=== PATIENT | female | born 1955 | race Caucasian/White ===

== ENCOUNTER → 2022-08-09 09:41 | Outpatient (BNVA) | payer MEDICARE, OTHER, SELFPAY | PROVIDERS: PCP Internal Medicine; Visit Provider Psychiatry & Neurology Psychiatry | DX: F33.41 Major depressive disorder, recurrent, in partial remission (principal); F41.1 Generalized anxiety disorder | CPT/HCPCS: 90833; 99212 ==

== ENCOUNTER → 2022-10-29 14:39 | Outpatient (BNVA) | payer MEDICARE, OTHER, SELFPAY | PROVIDERS: PCP Internal Medicine; Visit Provider Psychiatry & Neurology Psychiatry | DX: F33.41 Major depressive disorder, recurrent, in partial remission (principal); F41.1 Generalized anxiety disorder | CPT/HCPCS: 90833; 99212 ==

== ENCOUNTER → 2023-03-01 11:33 | Outpatient (BNVA) | payer MEDICARE, OTHER, SELFPAY | PROVIDERS: PCP Internal Medicine; Visit Provider Psychiatry & Neurology Psychiatry | DX: F41.1 Generalized anxiety disorder (principal); F33.41 Major depressive disorder, recurrent, in partial remission | CPT/HCPCS: 90833; 99212 ==

== ENCOUNTER 2023-05-24 12:15 | Outpatient (AMB) | payer MEDICARE, OTHER, SELFPAY ==
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
== END 2023-05-24 12:44 | disposition home or self-care (01) ==
LOC: HO.HOP 12:15
PROVIDERS: PCP Internal Medicine; Visit Provider Psychiatry & Neurology Psychiatry
DX: F41.1 Generalized anxiety disorder (principal); F33.41 Major depressive disorder, recurrent, in partial remission
CPT/HCPCS: 90833; 99213

== ENCOUNTER → 2023-05-24 12:15 | Outpatient (BNVA) | payer MEDICARE, OTHER, SELFPAY | PROVIDERS: PCP Internal Medicine; Visit Provider Psychiatry & Neurology Psychiatry | DX: F41.1 Generalized anxiety disorder (principal); F33.41 Major depressive disorder, recurrent, in partial remission | CPT/HCPCS: 90833; 99212 ==

== ENCOUNTER 2023-08-06 13:58 | Outpatient (AMB) | payer MEDICARE, OTHER, SELFPAY ==
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
== END 2023-08-06 13:58 | disposition home or self-care (01) ==
LOC: HO.HOP 13:58
PROVIDERS: PCP Internal Medicine; Visit Provider Psychiatry & Neurology Psychiatry
DX: F41.1 Generalized anxiety disorder (principal); F33.41 Major depressive disorder, recurrent, in partial remission
CPT/HCPCS: 90833; 99213

== ENCOUNTER → 2023-08-06 13:58 | Outpatient (BNVA) | payer MEDICARE, OTHER, SELFPAY | PROVIDERS: PCP Internal Medicine; Visit Provider Psychiatry & Neurology Psychiatry | DX: F33.41 Major depressive disorder, recurrent, in partial remission (principal); F41.1 Generalized anxiety disorder | CPT/HCPCS: 90833; 99212 ==

== ENCOUNTER 2023-12-23 11:11 | Outpatient (AMB) | payer MEDICARE, OTHER, SELFPAY ==
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
== END 2023-12-23 12:09 | disposition home or self-care (01) ==
LOC: HO.HOP 11:12
PROVIDERS: PCP Internal Medicine; Visit Provider Psychiatry & Neurology Psychiatry
DX: F41.1 Generalized anxiety disorder (principal); F33.41 Major depressive disorder, recurrent, in partial remission
CPT/HCPCS: 90833; 99213

== ENCOUNTER → 2023-12-23 11:11 | Outpatient (BNVA) | payer MEDICARE, OTHER, SELFPAY | PROVIDERS: PCP Internal Medicine; Visit Provider Psychiatry & Neurology Psychiatry | DX: F41.1 Generalized anxiety disorder (principal); F33.41 Major depressive disorder, recurrent, in partial remission | CPT/HCPCS: 99212 ==

== ENCOUNTER 2024-04-21 11:52 | Outpatient (REF) | payer MEDICARE, OTHER, SELFPAY ==
[2024-04-21 13:18] LABS: Iron 50 mcg/dL (30-160); Percent Iron Saturation 16 % (15-50); Total Iron Binding Capacity 310 mcg/dL (228-428); Unsaturated Iron Binding 260 ug/dL
== END 2024-04-21 11:53 | disposition home or self-care (01) ==
LOC: HO.LAB 11:52
PROVIDERS: PCP Internal Medicine; Visit Provider Psychiatry & Neurology Psychiatry
DX: F41.1 Generalized anxiety disorder (principal); G25.81 Restless legs syndrome; Z79.899 Other long term (current) drug therapy; E11.9 Type 2 diabetes mellitus without complications
CPT/HCPCS: 36415; 83540; 99212

== ENCOUNTER 2024-04-21 11:52 | Outpatient (AMB) | payer MEDICARE, OTHER, SELFPAY ==
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
== END 2024-04-21 11:53 | disposition home or self-care (01) ==
LOC: HO.HOP 11:52
PROVIDERS: PCP Internal Medicine; Visit Provider Psychiatry & Neurology Psychiatry
DX: F41.1 Generalized anxiety disorder (principal); F33.41 Major depressive disorder, recurrent, in partial remission
CPT/HCPCS: 90833; 99213

== ENCOUNTER 2024-09-01 13:52 | Outpatient (AMB) | payer MEDICARE, OTHER, SELFPAY ==
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
== END 2024-09-01 15:42 | disposition home or self-care (01) ==
LOC: HO.HOP 13:52
PROVIDERS: PCP Internal Medicine; Visit Provider Psychiatry & Neurology Psychiatry
DX: F33.41 Major depressive disorder, recurrent, in partial remission (principal); F41.1 Generalized anxiety disorder; G25.81 Restless legs syndrome
CPT/HCPCS: 99214

== ENCOUNTER → 2024-09-01 13:52 | Outpatient (BNVA) | payer MEDICARE, OTHER, SELFPAY | PROVIDERS: PCP Internal Medicine; Visit Provider Psychiatry & Neurology Psychiatry | DX: F33.41 Major depressive disorder, recurrent, in partial remission (principal); F41.1 Generalized anxiety disorder; R41.89 Other symptoms and signs involving cognitive functions and awareness; G25.81 Restless legs syndrome | CPT/HCPCS: 99212 ==

== ENCOUNTER 2024-09-02 14:22 | Outpatient (REF) | payer MEDICARE, OTHER, SELFPAY ==
[2024-09-02 14:34] LABS: MANUAL DIFF FLAG NO
[2024-09-02 14:42] LABS: Basophils Absolute Auto 0.1 X10*3/uL (0.0-0.2); Eosinophils Absolute Auto 0.2 X10*3/uL (0.0-0.4); Eosinophils Percent Auto 2.7 % (0-4); Hematocrit 39.8 % (37.0-47.0); Hemoglobin 12.9 g/dl (12.0-16.0); Imm Gran Abs Auto 0.03 X10*3/uL (0.00-0.03); Imm Gran Pct Auto 0.4 % (0.0-0.4); Lymphocytes Percent Auto 29.2 % (20-40); Mean Corpuscular HGB Conc 32.4 g/dl (31.0-35.0); Mean Corpuscular Volume 83.3 fL (80.0-98.0); Mean Platelet Volume 9.4 fL (9.4-12.3); Monocytes Absolute Auto 0.7 X10*3/uL (0.1-1.2); Monocytes Percent Auto 10.8 % (2-11); Neutrophils Absolute Auto 3.8 x10*3/uL (2.0-8.3); Neutrophils Percent Auto 55.9 % (45-73); Platelet Count 433 X10*3/uL (160-400); Red Blood Count 4.78 X10*6/uL (4.20-5.50); Red Cell Distribution Width 14.9 % (11.0-16.0); White Blood Count 6.8 X10*3/uL (4.8-10.8)
[2024-09-02 15:18] LABS: Alanine Aminotransferase 28 U/L (0-31); Albumin Level 4.1 g/dL (3.5-5.0); Alkaline Phosphatase 71 U/L (39-117); Anion Gap 11 (12-20); Aspartate Amino Transferase 31 U/L (5-31); Bilirubin Total 0.2 mg/dL (0.0-1.0); Blood Urea Nitrogen 18 mg/dL (9-16); Calcium 10.6 mg/dL (8.4-10.2); Carbon Dioxide 26 mmol/L (22-29); Chloride 105 mmol/L (96-108); Estimated Glomerular Filt Rate > 60; Glucose Random 163 mg/dL (60-115); Potassium 4.3 mmol/L (3.3-5.1); Sodium 138 mmol/L (135-145); Total Protein 7.8 g/dL (6.5-8.0)
[2024-09-02 15:26] LABS: TSH reflex Free T4 0.34 uIU/mL (0.32-4.0)
[2024-09-02 15:42] LABS: Folate > 20.0 ng/mL (> or = 4.0); Vitamin B12 475 pg/mL (200-900)
== END 2024-09-02 14:23 | disposition home or self-care (01) ==
LOC: HO.LAB 14:22
PROVIDERS: PCP Internal Medicine; Visit Provider Psychiatry & Neurology Psychiatry
DX: F33.41 Major depressive disorder, recurrent, in partial remission (principal); F41.1 Generalized anxiety disorder; G25.81 Restless legs syndrome; R41.89 Other symptoms and signs involving cognitive functions and awareness
CPT/HCPCS: 36415; 80053; 82607; 82746; 84443; 85025

== ENCOUNTER 2024-12-18 12:01 | Outpatient (REF) | payer MEDICARE, OTHER, SELFPAY ==
[2024-12-18 13:47] LABS: Parathyroid Hormone Intact 29.9 pg/mL (8.7-77.1)
[2024-12-18 13:49] LABS: Estimated Average Glucose 140 mg/dL; Hemoglobin A1C 165.1805 umol/L; Hemoglobin A1c % 6.5 % (<6.0); Total Hemoglobin (HGBA1C) 3484.7533 umol/L
[2024-12-18 13:52] LABS: Alanine Aminotransferase 20 U/L (0-31); Albumin Level 4.1 g/dL (3.5-5.0); Alkaline Phosphatase 87 U/L (39-117); Anion Gap 12 (12-20); Aspartate Amino Transferase 28 U/L (5-31); Bilirubin Total 0.1 mg/dL (0.0-1.0); Blood Urea Nitrogen 17 mg/dL (9-16); Calcium 10.1 mg/dL (8.4-10.2); Carbon Dioxide 24 mmol/L (22-29); Chloride 108 mmol/L (96-108); Estimated Glomerular Filt Rate > 60; Glucose Random 127 mg/dL (60-115); Iron 36 mcg/dL (30-160); Percent Iron Saturation 11 % (15-50); Potassium 4.8 mmol/L (3.3-5.1); Sodium 139 mmol/L (135-145); Total Iron Binding Capacity 338 mcg/dL (228-428); Total Protein 8.6 g/dL (6.5-8.0); Unsaturated Iron Binding 302 ug/dL
[2024-12-18 14:17] LABS: Folate > 20.0 ng/mL (> or = 4.0); Vitamin B12 594 pg/mL (200-900)
--- OUTSIDE RECORDS SUMMARY | 2024-12-18 14:58 | XMS_ITS | Clinical Summary ---
Author Organization [facility] Address [address] [place] [address] Care Team Providers Care Armature Winder Name Role Phone Unavailable Primary Care Provider Unavailabl e Surgical History Surgery Date Site/Laterality Comments COLONOSCOPY 04/22 PROCEDURE: [place] COLONOSCOPY STOMA DX INCLUDING COLLJ SPEC SPX; COMMENT: iFdel; neg; R 04/27 OTHER SURGICAL HISTORY 02/24 PROCEDURE: PAP SMEAR (1 SLIDE); COMMENT: Tahira; neg (pp) MAMMOGRAM ELEONORA 08/27 PROCEDURE: MAMMOGRAM, SCREENING, BOTH BREASTS; COMMENT: neg (pp) Medical History Medical History Date Comments Pain in joint, lower leg 06/18/2006 DX:Pain in joint, lower leg Unspecified sinusitis (chronic) 06/18/2006 DX:Unspecified sinusitis (chronic) Other chronic nonalcoholic l iver disease 06/18/2006 DX:Other chronic nonalcoholi c liver disease Other chronic nonalcoholic l iver disease 06/18/2006 DX:Other chronic nonalcoholi c liver disease; COMMENT: Fidel Irritable bowel syndrome 06/18/2006 DX:Irri table bowel syndrome Carpal tunnel syndrome 06/18/2006 DX:Carpal tunnel syndrome Other and unspecified hyperlipidemia 02/11/2008 DX:Other and unspecified hyperlipidemia Abnormal maternal glucose to lerance, antepartum 06/18/2006 DX:Abnormal maternal glucose tolerance, antepartum Historical Medical DX 09/01/2007 DX:Diabete s Shoulder joint pain 12/05/2009 DX:Shoulder joint pain Family History Medical History Relation Name Comments Breast cancer Aunt 1 mat; DM II Colon cancer Aunt 2 pat; [place] Cataracts Father Diabetes Father pancreatits Glaucoma Father Breast cancer Maternal Grandmother Blindness Paternal Grandfather legally blind in Diabetes Paternal Grandfather Colon cancer Paternal Grandmother Macular degeneration Neg Hx Strabismus Neg Hx Relation Name Status Comments Aunt 1 Aunt 2 Father Maternal Grandmother Paternal Grandfather Paternal Grandmother Social History Tobacco Use Types Packs/Day Years Used Date Smoking Tobacco: Never Alcohol Use Standard Drinks/Week Comments Not Asked 0 (1 standard drink = 0.6 oz pur e alcohol) Comments Unknown Sex and Gender Information Value Date Recorded Sex Assigned at Not on file Legal Sex Female 10:50 AM EST Gender Identity Not on file Sexual Orientation Not on file Obstetrics History Plan of Treatment Health Maintenance Due Date Last Done Comments Breast Cancer Screening 1955 Diabetes: Annual GFR (Glomerular Filtration Rate) 1955 Diabetes: Annual Foot Exam 1965 Diabetes: Annual Retina Eye Exam 1965 DTaP,Tdap,and Td Vaccines (1 - Tdap) 1974 Hepatitis A Vaccines (1 of 2 - Risk 2-dose series) 1974 Pneumococcal Vaccine: 50+ Years (1 of 1 - PCV) 2005 Zoster Vaccines (1 of 2) 2005 Hepatitis B Vaccines (1 of 3 - Risk 3-dose series) 2015 RSV Immunization Patients 60 + Years Old (1 - Risk 60-74 years 1-dose series) 2015 Cholesterol Screening (Lipid Panel) 09/18/2022 Colorectal Cancer Screening: Colonoscopy 09/18/2022 Depression Screening 09/18/2022 Falls Risk Assessment 09/18/2022 Hepatitis C Screening 09/18/2022 Osteoporosis Screening (Bone Density Screening) 09/18/2022 Social Influencers of Health Screening 09/18/2022 Diabetes: Annual Urine Albumin-Creatinine Ratio (uACR) 10/06/2022 Diabetes: Blood Sugar Contro l Test (HGBA1C) 10/06/2022 COVID-19 Vaccine ( - 2023-2 5 season) 2024 Influenza Vaccine (#1) 2024 , 09/01/2007 HIB Vaccines Aged Out No longer eligi ble based on patient's age to complete this topic HPV Vaccines Aged Out No longer eligi ble based on patient's age to complete this topic IPV Vaccines Aged Out No longer eligi ble based on patient's age to complete this topic MMR Vaccines Aged Out No longer eligi ble based on patient's age to complete this topic Meningococcal ACWY Vaccine Aged Out N o longer eligible based on patient's age to complete this topic Meningococcal B Vacine Aged Out No lo nger eligible based on patient's age to complete this topic RSV Immunization Patients Under 20 months Aged Out No longer eligible b ased on patient's age to complete this topic Varicella Vaccines Aged Out No longer eligible based on patient's age to complete this topic
[2024-12-21 08:58] LABS: Calcium, Ionized 5.5 mg/dL (4.7-5.5)
== END 2024-12-18 12:02 | disposition home or self-care (01) ==
LOC: HO.LAB 12:01
PROVIDERS: PCP Internal Medicine; Visit Provider Psychiatry & Neurology Psychiatry
DX: F33.41 Major depressive disorder, recurrent, in partial remission (principal); F41.1 Generalized anxiety disorder; R41.89 Other symptoms and signs involving cognitive functions and awareness; G25.81 Restless legs syndrome; R73.9 Hyperglycemia, unspecified
CPT/HCPCS: 36415; 80053; 82330; 82607; 82746; 83036; 83540; 83970

== ENCOUNTER 2025-01-28 11:05 | Outpatient (AMB) | payer MEDICARE, OTHER, SELFPAY ==
--- OUTSIDE RECORDS SUMMARY | 2025-01-28 13:22 | XMS_ITS | Clinical Summary ---
Author Organization [facility] Address [address] [place] [address] Care Team Providers Care Decoration Checker Name Role Phone Unavailable Primary Care Provider Unavailabl e Surgical History Surgery Date Site/Laterality Comments COLONOSCOPY 04/22 PROCEDURE: [place] COLONOSCOPY STOMA DX INCLUDING COLLJ SPEC SPX; COMMENT: Fidel; neg; R 04/27 OTHER SURGICAL HISTORY 02/24 [...] DM II Colon cancer Aunt 2 pat; [place] Cataracts Father Diabetes Father pancreatits Glaucoma Father [...] - Risk 3-dose series) 2015 RSV Immunization Adult Patients (1 - Risk 60-74 years 1-dose series) 2015 Cholesterol Screening (Lipid Panel) 09/18/2022 Colorectal Cancer Screening: Colonoscopy 09/18/2022 Depression Screening 09/18/2022 Falls Risk Assessment 09/18/2022 Hepatitis C Screening 09/18/2022 Osteoporosis Screening (Bone Density Screening) 09/18/2022 Social Influencers of Health Screening 09/18/2022 Diabetes: Annual Urine Albumin-Creatinine Ratio (uACR) 10/06/2022 Diabetes: Blood Sugar Contro l Test (HGBA1C) 10/06/2022 COVID-19 Vaccine (2023-2 5 season) 2024 Influenza Vaccine (Season Ended) 2025 07/26/2009, 09/01/2007 HIB Vaccines Aged Out No longer [...] age to complete this topic Meningococcal B Vaccine Aged Out No l onger eligible based on patient's age to complete this topic RSV Immunization Patients Under 20 months Aged Out No longer eligible b ased on patient's age to complete this topic Varicella Vaccines Aged Out No longer eligible based on patient's age to complete this topic
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
== END 2025-01-28 12:00 | disposition home or self-care (01) ==
LOC: HO.HOP 11:05
PROVIDERS: PCP Internal Medicine; Visit Provider Psychiatry & Neurology Psychiatry
DX: F33.41 Major depressive disorder, recurrent, in partial remission (principal); F41.1 Generalized anxiety disorder
CPT/HCPCS: 99214

== ENCOUNTER → 2025-01-28 11:05 | Outpatient (BNVA) | payer MEDICARE, OTHER, SELFPAY | PROVIDERS: PCP Internal Medicine; Visit Provider Psychiatry & Neurology Psychiatry | DX: F41.1 Generalized anxiety disorder (principal); F33.41 Major depressive disorder, recurrent, in partial remission; Z71.89 Other specified counseling | CPT/HCPCS: 99212 ==

== ENCOUNTER 2025-03-25 12:48 | Outpatient (AMB) | payer MEDICARE, OTHER, SELFPAY ==
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
== END 2025-03-25 13:45 | disposition home or self-care (01) ==
LOC: HO.HOP 12:48
PROVIDERS: PCP Internal Medicine; Visit Provider Psychiatry & Neurology Psychiatry
DX: F41.1 Generalized anxiety disorder (principal); G25.81 Restless legs syndrome
CPT/HCPCS: 90833; 99213

== ENCOUNTER → 2025-03-25 12:48 | Outpatient (BNVA) | payer MEDICARE, OTHER, SELFPAY | PROVIDERS: PCP Internal Medicine; Visit Provider Psychiatry & Neurology Psychiatry | DX: F41.1 Generalized anxiety disorder (principal); G25.81 Restless legs syndrome | CPT/HCPCS: 99212 ==

== ENCOUNTER 2025-07-20 14:32 | Outpatient (AMB) | payer MEDICARE, OTHER, SELFPAY ==
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
--- OUTSIDE RECORDS SUMMARY | 2025-07-20 15:56 | XMS_ITS | Encounter Summary ---
Author Organization [facility] Address [address] [place] [id number] Phone Care Team Providers Care Supervisor Paper Testing Name Role Phone Shady Anaya DO Primary Care Provider [phone] Encounter Details Date Type Department Care Team (Latest Contact Info) Description 09/28/2022 Transcribe Orders [facility] [address] [address] Sri Bhakta NP [address] [place] [address] Fecal urgency (Primary Dx); Change in bowel habits; Lower abdominal pain Social History Tobacco Use Types Packs/Day Years Used Date Smoking Tobacco: Never Assessed Comments Unknown Sex and Gender Information Value Date Recorded Sex Assigned at Not on file Legal Sex Female 8:48 AM EDT Gender Identity Not on file Sexual Orientation Not on file documented as of this encounter Plan of Treatment Not on file documented as of this encounter Results * C-Reactive Protein (09/28/2022 12:01 PM EST) C REACTIVE PROTEIN <3.0 0.0 - 4.0 mg/L [facility] Blood 09/28/2022 12:0 1 PM EST 09/28/2022 12:05 PM EST us Sri Bhakta NP LAB BLOOD ORDERABLES Daiana l Result [facility] [address] [place] [address] * (ABNORMAL) Comprehensive metabolic panel (09/28/2022 12:01 PM EST) SODIUM 138 133 - 146 mmol/L [facility] POTASSIUM 4.6 3.3 - 5.1 mmol/L [facility] CHLORIDE 101 96 - 108 mmol/L [facility] CO2 25 21 - 35 mmol/L [facility] BUN 21(H) 6 - 19 mg/dL [facility] CREATININE 0.90 0.5 - 1.5 mg/dL [facility] GLUCOSE 128(H) 70 - 99 mg/dL [facility] ALBUMIN 4.3 3.9 - 4.8 g/dL [facility] TOTAL PROTEIN 7.6 6.5 - 8.0 g/dL [facility] CALCIUM 10.1 8.4 - 10.3 mg/dL [facility] ALKALINE PHOSPHATASE 85 39 - 117 U/L [facility] TOTAL BILIRUBIN 0.2 0.0 - 1.2 mg/dL [facility] AST 29 0 - 37 U/L [facility] ALT 13 0 - 40 U/L [facility] GLOBULIN 3.3 1 - 4.8 g/dL [facility] EGFR 70 >59 mL/min/1.7 3m2 [facility] Comment:Estimated glomerular filtration rate calculated using the CKD-EPI refit equation. ANION GAP 17 10 - 20 mmol/L [facility] Blood 09/28/2022 12:0 1 PM EST 09/28/2022 12:05 PM EST us Sri Bhakta NP LAB BLOOD ORDERABLES Daiana l Result [facility] [address] [place] [address] * (ABNORMAL) CBC (09/28/2022 12:01 PM EST) WBC 7.56 4.00 - 11.00 K/uL [facility] RBC 4.55 3.72 - 5.30 M/uL [facility] HGB 11.5 11.4 - 15.9 g/dL [facility] HCT 36.4 34.2 - 46.8 % [facility] PLT 501(H) 140 - 430 K/uL [facility] MCV 80.0 78.0 - 97.0 fL [facility] MCH 25.3 25.0 - 33.0 pg [facility] MCHC 31.6(L) 32.0 - 36.0 g/dL [facility] RDW 16.0 11.0 - 16.0 % [facility] MPV 10.3 8.4 - 12.8 fl [facility] Blood 09/28/2022 12:0 1 PM EST 09/28/2022 12:05 PM EST Sri Bhakta [employer] LAB BLOOD ORDERABLES Daiana hearn Result Performing Organization Address City/State/[facility] Co de Phone Number [facility] [address] [place] [address] documented in this encounter Visit Diagnoses Diagnosis Fecal urgency- Primary Change in bowel habits Other symptoms involving digestive system Lower abdominal pain Abdominal pain, other specified site documented in this encounter Care Teams Supervisor Paper Testing Relationship Specialty Start Date End Date Shady Anaya DO [address] [place] [address] PCP - General Internal Medicine 03/28/22 documented as of this encounter Additional Source Comments The information contained in this document represents components of the legal health record. It is not the complete legal health record.[facility]
--- OUTSIDE RECORDS SUMMARY | 2025-07-20 15:56 | XMS_ITS | Clinical Summary ---
[facility] Address [address] [place] [address] Care Team Providers Care Bottling Line Attendant Name Role Phone Unavailable Primary Care Provider Unavailabl e Surgical History Surgery Date Site/Laterality Comments COLONOSCOPY 04/22 PROCEDURE: [place] COLONOSCOPY STOMA DX INCLUDING COLLJ SPEC SPX; [...] DM II Colon cancer Aunt 2 pat; [place] Cataracts Father Diabetes Father pancreatits Glaucoma Father [...] Last Done Comments Breast Cancer Screening 1955 DTaP,Tdap,and Td Vaccines (1 - Tdap) 1974 Pneumococcal Vaccine: 50+ Years (1 of 1 - PCV) 2005 Zoster Vaccines (1 of 2) 2005 Depression Screening 10/21/2024 COVID-19 Vaccine (1 - 2023-2 5 season) 2025 Influenza Vaccine (#1) 2025 9, 09/01/2007 RSV Immunization Adult Patients (1 - 1-dose 75+ series) 2030 HIB Vaccines Aged Out No longer eligi ble based on patient's age to complete this topic HPV Vaccines Aged Out No longer eligi ble based on patient's age to complete this topic Hepatitis A Vaccines Aged Out No long er eligible based on patient's age to complete this topic Hepatitis B Vaccines Aged Out No long er eligible based on patient's age to complete [...]
--- OUTSIDE RECORDS SUMMARY | 2025-07-20 15:56 | XMS_ITS | Clinical Summary ---
Author Organization [facility] Address [address] [place] [id number] Phone Care Team Providers Care Director Process Engineering Name Role Phone Shady Anaya DO Primary Care Provider [phone] Social History Tobacco Use Types Packs/Day Years Used Date Smoking Tobacco: Never Assessed Education Answer Date Recorded Are you interested in more education? Not on esme e 02/16/2023 Are you concerned about learning? Not on file 02/16/2023 No 02/16/2023 No 02/16/2023 Digital Access Answer Date Recorded No 03/19/2023 No 03/19/2023 Reliable internet access at home? Not on file 03/19/2023 Device with a working camera? Not on file Comments Unknown Sex and Gender Information Value Date Recorded Sex Assigned at Not on file Legal Sex Female 8:48 AM EDT Gender Identity Not on file Sexual Orientation Not on file Plan of Treatment Not on file Medical Devices Not on file Insurance MEDICARE PART A & B [facility] [employer] MEDICARE SUPPLEMENT MEDICARE PART A & B [facility] [employer] MEDICARE SUPPLEMENT MEDICARE PART A & B Member Subscriber Plan / Payer ( fective 2021-) Name:Cici Mcginnis Member ID:[id number] Relation to Subscriber:Self Name:Cici Mcginnis Subscriber ID:[id number] Payer ID:[id number] Group ID:Not on file Type:Medicare Address: [employer] [address] [place] [phone] [facility] MEDICARE SUPPLEMENT MEDICARE PART A & B [facility] MEDICARE SUPPLEMENT MEDICARE PART A & B [employer] MEDICARE SUPPLEMENT MEDICARE PART A & B [employer] MEDICARE SUPPLEMENT MEDICARE PART A & B [employer] EXTENSION MEDICARE SUPPLEMENT MEDICARE PART A & B [employer] EXTENSION MEDICARE SUPPLEMENT MEDICARE PART A & B [facility] [employer] MEDICARE SUPPLEMENT Care Teams Director Process Engineering Relationship Specialty Start Date End Date Shady Anaya DO [address] [place] [id number] PCP - General Internal Medicine 03/28/22 Additional Source Comments The information contained in this document represents components of the legal health record. It is not the complete legal health record.[facility]
== END 2025-07-20 15:33 | disposition home or self-care (01) ==
LOC: HO.HOP 14:32
PROVIDERS: PCP Internal Medicine; Visit Provider Psychiatry & Neurology Psychiatry
DX: F41.1 Generalized anxiety disorder (principal); G25.81 Restless legs syndrome
CPT/HCPCS: 90833; 99213

== ENCOUNTER → 2025-07-20 14:32 | Outpatient (BNVA) | payer MEDICARE, OTHER, SELFPAY | PROVIDERS: PCP Internal Medicine; Visit Provider Psychiatry & Neurology Psychiatry | DX: F41.1 Generalized anxiety disorder (principal); G25.81 Restless legs syndrome | CPT/HCPCS: 99212 ==

== ENCOUNTER 2025-10-04 13:32 | Outpatient (AMB) | payer MEDICARE, OTHER, SELFPAY ==
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
--- OUTSIDE RECORDS SUMMARY | 2025-10-04 19:42 | XMS_ITS | Data Portability ---
Author Organization [place] [facility] Address [address] [place] [id number] Care Team Providers Care Curbstone Setter Name Role Phone MARGOT HODGES Primary Care Provider Assessment Encounter Date Assessment Date Assessment LastModified by Organization Details LastModified Time 09/01/2021 09/01/2021 Overview/History : 66 y/o F with hx of HLD, Anxiety, Depression, Hypogammaglobuli nemia, Restless leg syndrome, and peripheral neuropathy, new to and new to provider, is seeking further evaluation for a rash underneath her right breast that she noticed yesterday. The patient states that the rash is not itchy or painful and there was no numbness and tingling prior to the rash occurring. Patient denies any other associated symptoms. Patient denies any fevers, chills, nausea, vomiting, diarrhea, chest pain, or abdominal pain. Exam: AAOx3 overweight, female, non-toxic appearing, in no acute distress, ambulatory Head: NC/AT (+) moist mucous membranes Heart: RRR with no murmurs, rubs or gallops Lungs: CTABL with no ronchi, wheezes or rales present Skin: erythematous beefy red serpinginous rash under right breast fold with (+) satelitte lesions present DDx considered, but not limited to: Intertrigo versus Shingles versus Cellulitis Work up/Results: Patient is non-toxic appearing, in no acute distress, but is anxious. Patient is afebrile to 97.6. HR is 71. BP 124/84. RR is 20. O2sat is 98% on RA. Patient has an erythematous beefy red rash that is serpinginous appearing with satelitte lesions consistent with intertrigo. Underneath the breast is moist. Will initiate anti-fungal medication. No work-up or intervention deemed necessary at this time. Plan/Discussion: Advised patient that her symptoms are consistent with intertrigo that requires both antifungal therapy as well as keeping her skin dry as moisture can make the rash worse. Patient verbalized her understanding. Rash is not consistent with shingles as it is not painful and there were no prodromal symptoms of numbness or tingling prior to rash coming out. Rx: Clotrimazole elecronically prescribed to pharmacy.. Advised to keep underneath the breast folds dry. Advised to monitor for worsening spread of the rash, warmth, pain, numbness/tinglin g, fevers, chills, nausea or vomiting and if any of these are to occur then to call 911 and go to the ER or call back for re-evaluation. Patient verbalized her understanding of the diagnosis and need for follow up with PCP, as well as ER/DH return precautions. Proper Personal Protective Equipment (PPE), including gloves, eye protection, N95 mask, gown, and shoe covers were donned and doffed appropriately and all equipment cleaned using approved technique with germicidal disposable wipes prior to and after care of this patient according to [facility] infection prevention protocols. Not available 09/01/2021 20:16:29 03/15/2022 03/15/2022 Overview/History : 66 YO F new to provider but known to I have been in this home prior to see family Patient is c/o of 3 days of loose stools, can be watery at times She has not stooled yet today and she may be getting a bit better She has hx of IBS and has had bouts of this in the past She does vice frustration about having no GI follow up until April She reports she has not seen her GI specialist in some time and he has changed practices and this is likely why she must wait a bit She reports she called her primary and he did order some blood work to be done on her, she will be going to the lab to get this done She also requires supplies for a stool sample She reports she has been eating a BRAT diet and she has been hydrating She denies any fever/chills, abd pain, cp, weakness, lethargy, blood in stool, nausea, or vomiting. Exam: Vitals: VSS and afebrile Constitutional: 66 yo Well developed, well nourished, pleasant patient in no apparent distress. Nontoxic and comfortable. Eyes: No swelling, no discharge, sclera / conjunctiva clear ENT: no nasal discharge, no erythema/ exudate noted in oropharynx, moist mucous membranes CV: RRR, no rubs/ murmurs/ gallops heard, 2+ radial pulses bilaterally, no edema and no calf tenderness, 2+ DP/ PT pulses bilaterally Pulm: breath sounds clear and equal bilaterally, no wheeze/ rhonchi or rales on auscultation. Speaks in full sentences, no increased work of breathing. GI: Soft, non-tender to palpation. No masses, normal bowel sounds. MS: Self ambulatory patient, moves all limbs without deficit, no evidence of trauma Neuro: No focal deficits, A&O x4, gait is not ataxic Skin: No rash Psych: Calm, cooperative, non-manic. Pleasant. Vital Signs: Stable and afebrile DDx considered, but not limited to: C diff - considered d/t some watery stools and she does report that she was recently tx for UTI. We will check for C diff d.t these hx components however I doubt this as no stool today, no mucous, no fever, benign abdomen Viral Gastro - ML cause of sx's is some sort of viral diarrhea illness. There is no mucous, fever, abdomen is benign, and VSS. No diarrhea today and no recent high risk foods ie sushi or salads is why i believe viral gastro is ML Acute abdomen - abd is soft, nontender and she is w/o pain. No jaundice, no N/V and diarrhea seems to be turning corner. Do not suspect any acute process is what is causing her diarrhea at this time Dehydration: VSS, she is drinking plenty, MMM. She is not dehydrated at this time Work up/Results: C diff spec - awaiting collection anad results Plan/Discussion: Viral Gastroenteritis: -Believe this to be ML cause of sx's please see above -VSS and afebrile -No dehydrated -Hx of IBS and she has had issues w/ diarrhea in past -Usually relieved w/ loperamide but did not work last couple of days as well as she is used to -She did take Pepto Bismol last night and was able to get full night sleep, no diarrhea yet today -She can cont pepto since that seems to be working better for her at this time. She does not take skilled nursing ASA so low risk for salicylate poisoning. Educated about this and safe doses of pepto. Discussed always taking medicine according to original packaging. -She is to f/u at the lab for tests PCP would like to order so they may get results and f/u w/ them appropriately -She is to f/u w/ GI as sched and start calling them to see if she can sched for sooner potentially -She will collect stool and bring in to lab once she can get sample. Educated that she will need to collect stool, refridgerate it and bring in w/in 24 hrs -She is to f/u if sxs cont -F/u emergently w/ any abd pain, blood in stool, inability to intake PO, weakness, lethargy Of note we will check COVID 19PCR to fully r/o Pt is on agreement and verbalizes understanding with the above plans at this time. Pt has no other questions or concerns at this time. All questiosn are answered to the best of my ability. Pt thanks us for our visit today. In order to obtain further information and compare any laboratory results/values, I have accessed patient records on the [facility] and old pt records. This information was pertinent in my medical decision making today. Time On Scene with Patient: 01:28:35 Addendum: Did go back and collect stool for patient. We will bring to lab. Not watery, very unlikely C diff. States she hopes she is turning the corner as she ambulates easily around her home in [facility]. Still appears well. [email or web address] Not available 03/15/2022 11:53:58 Plan of Treatment Reminders Order Date Submit Date Provider Last Modified By Organization Details Last Modified Time Details Appointments None recorded. Lab unlisted lab - covid-19 (novel coronavirus ) PCR 2021 022 AMANDO [facility] (Centralized Electronic Ordering - All Locations), Patient Can Go To The Location Of Their Choice, [id number] 14:28:30 C diff toxin A+B, qual IA, stool - Collected by [employer]. 2021 022 [id number] [facility] (Centralized Electronic Ordering - All Locations), Patient Can Go To The Location Of Their Choice, [id number] 18:16:33 Referral None recorded. Procedures None recorded. Surgeries None recorded. Imaging None recorded. Medication Orders clotrimazol e 1 % topical cream [address] [facility] #[id number], [address] [place], [address], 19:55:19 Patient TargetsNo targets recorded. Patient Instructions Encounter Date Encounter Id Patient Instructions Last Modified By Organization Details Last Modified Time 09/01/2021 [id number] Thank you for yo ur visit with [facility] today. We cannot always find the exact cause of your symptoms during your initial visit. Please follow up with your primary care provider or specialist within 24-48 hours to be rechecked or seek medical attention if your symptoms do not go away or get worse. If you develop any new or worsening symptoms and need after hours care, please go to nearest ER and/or call 911. If you have additional concerns or develop a change in your condition between 8am-10pm, please call [facility] at [phone] to help navigate your care. Not available 09/01/2021 20:16:36 Reason for Referral None Reported. Results Created Date Observation Date Name Description Value Unit Range Abnormal Flag Note LastModifiedBy Organization Detail LastModifiedTime 03/15/20 22 03/16/2022 C. DIFFI CILE TOXIN C. difficile toxin (ngcdf 7) normal Negat bo. C.Dif ficil e bacte rial antig en and toxin not detec vida. A negat bo test resul t does not rule out the possi bilit y of C.Dif ficil e assoc iated disea se. If clini vipul suspi cion is high, consi melva resub gisel on after 7 days. Not Available [facility] (Centralized Electronic Ordering - All Locations) Patient Can Go To The Location Of Their Choice, [id number] 03/16/2022 08:53:17 03/15/20 22 03/16/2022 COVID -19 (NOVE L CORON AVIRU S) PCR covid-19 PCR result (neg) NEGAT BO 2019- novel Coron aviru s (2019 -nCoV ) not detec vida by real- time RT-PC R. Note: If clini vipul suspi cion for COVID -19 is high, giovany nue to maint ain preca ution s and consi melva repea t testi ng. Resul t repor vida to the [facility]. To preve nt error s in diagn osis, test resul ts shoul d be inter prete d in the krystal xt of clini vipul findi ngs and other labor atory data. Rare polym orphi sms exist that could lead to false -nega tive or false -posi tive resul ts. If resul ts obtai ana do not match the clini vipul findi ngs, addit ional testi ng shoul d be consi dered . This test has been autho rized by the FDA under an Emerg ency Use Autho rizat ion (EUA) for use by autho rized labor atori es. Testi ng perfo rmed by real time PCR utili [employer] SARS- CoV-2 test. Not Available [facility] (Centralized Electronic Ordering - All Locations) Patient Can Go To The Location Of Their Choice, [id number] 03/16/2022 14:28:30 03/15/2003/16/2022 COVID -19 (NOVE L CORON AVIRU S) PCR covid-19 PCR specimen source NASAL Not Available [facility] (Centralized Electronic Ordering - All Locations) Patient Can Go To The Location Of Their Choice, [id number] 03/16/2022 14:28:30 Result Notes None recorded. Procedures Surgical History Date Name Laterality Status Provider Name and Address Organization Details Recorded Time replacement of bilateral hip joints completed RUPERT MEJIA [address] [place], [address], [place] [facility] 09/01/2021 19:48:28 Carpal tunnel surgery completed RUPERT MEJIA [address], [place], [address], [place] [facility] 09/01/2021 19:48:35 Imaging Results None recorded. Procedure Notes None recorded. Medical Equipment None Reported. Allergies No known drug allergies Medications Name Sig Start Date Stop Date Status Note LastModified by Organization Details LastModified Time celecoxib 200 mg capsule TAKE 1 CAPSULE BY MOUTH EVERY DAY MEDICATIO N TO BE STARTED AFTER SURGERY active Not Available Not Available No t Available FreeStyle Lancets 28 gauge 09/01 completed Not Available Not Available Not Available venlafaxine ER 150 mg capsule,ext ended release 24 hr TAKE 1 CAPSULE BY MOUTH EVERY DAY active Not Available Not Available No t Available simvastatin 80 mg tablet TAKE ONE TABLET BY MOUTH AT BEDTIME active Not Available Not Available No t Available tramadol 50 mg tablet active Not Available Not Available No t Available amoxicillin 500 mg tablet TAKE 4 TABS BY MOUTH 1 HOUR PRIOR TO DENTIST APPT FOR PROPHYLAX IS S/P TOTAL JOINT REPLACEME NT active Not Available Not Available No t Available aspirin 325 mg tablet,dianna yed release TAKE ONE TABLET TWICE A DAY FOR 30 DAYS. MEDICATIO N TO BE STARTED AFTER SURGERY. active Not Available Not Available No t Available ropinirole 0.25 mg tablet TAKE 1 TABLET BY MOUTH EVERYDAY AT BEDTIME active Not Available Not Available No t Available pantoprazol e 40 mg tablet,dianna yed release TAKE 1 TABLET BY MOUTH EVERY DAY FOR AFTER SURGERY active Not Available Not Available No t Available ferrous sulfate 325 mg (65 mg iron) tablet TAKE 1 TABLET BY MOUTH EVERY DAY FOR 30 DAYS active Not Available Not Available No t Available metformin 1,000 mg tablet TAKE 1 TABLET BY MOUTH TWICE A DAY active Not Available Not Available No t Available buspirone 10 mg tablet 09/01 completed Not Available Not Available Not Available docusate sodium 100 mg capsule TAKE 1 CAPSULE BY MOUTH TWICE A DAY . MEDICATIO N TO BE STARTED AFTER SURGERY active Not Available Not Available No t Available gabapentin 300 mg capsule TAKE 1 CAPSULE BY MOUTH EVERY DAY AT NIGHT active Not Available Not Available No t Available omeprazole 20 mg capsule,del ayed release TAKE 1 CAPSULE BY MOUTH EVERY DAY active Not Available Not Available No t Available gabapentin 100 mg capsule 09/01 completed Not Available Not Available Not Available lorazepam 1 mg tablet TAKE 1/2 TAB IN THE AM AND ONE TABLET AT BEDTIME AND HALF NEEDED DAILY active Not Available Not Available No t Available pioglitazon e 30 mg tablet TAKE 1 TABLET BY MOUTH EVERY DAY active Not Available Not Available No t Available fluticasone propionate 50 mcg/actuati on nasal spray,suspe nsion active Not Available Not Available Not Available clotrimazol e 1 % topical cream APPLY TO THE AFFECTED AND SURROUNDI NG AREAS OF SKIN BY TOPICAL ROUTE 2 TIMES PER DAY IN THE MORNING AND EVENING active Not Available Not Available No t Available buspirone 15 mg tablet TAKE 1 AND 1/2 TABLET BY MOUTH TWICE A DAY active Not Available Not Available No t Available nitrofurant oin monohydrate /macrocryst als 100 mg capsule TAKE 1 CAPSULE BY MOUTH TWICE A DAY FOR 10 DAYS active Not Available Not Available No t Available Gammagard Liquid 10 % injection solution Take 1 mL every 4 weeks by injection route as directed. active Not Available Not Available No t Available FreeStyle Lite Strips 09/01 completed Not Available Not Available Not Available Vitals Date Recorded Respiratory rate Oxygen saturation Body temperature Heart rate Systolic And Diastolic Provider Name and Address Organization Details Last Updated DateTime 2 18 /min 98 % 97.9 [degF] 86 /min 126/78 mm[Hg] Not Available [facility] 2 10:02:41 Date Recorded Respiratory rate Heart rate Oxygen saturation Body temperature Systolic And Diastolic Provider Name and Address Organization Details Last Updated DateTime 1 20 /min 71 /min 98 % 97.6 [degF] 124/84 mm[Hg] Not Available [facility] 1 19:48:28 Social History None recorded. Functional Status Question Answer Note LastModified by Organizat ion Details LastModified Time Do you use any illicit or recreational drugs? No Information not available 09/01/2021 Do you or have you ever used any other forms of tobacco or nicotine? No Information not available 09/01/2021 What is your level of alcohol consumption? None Information not available 09/01/2021 Mental Status None recorded. Family History Relationship Description Onset Age of this Age Resolved Age Notes LastModified by Organization Details LastModified Time Father Chronic obstructive pulmonary disease Not available 2020 19:48:00 Medical History Condition Response Diabetes N Coronary Artery Disease N CHF N Parkinson's Disease N Cancer N Stroke N Dementia N Asthma N Hypothyroidism N Depression Y COPD N High Cholesterol Y Rheumatoid Arthritis N Pulmonary Embolism N Hypertension N A-fib N Osteoporosis N Kidney Disease N Gynecological HistoryNo gynecological history recorded. Obstetrics History GPAL:G 0 P 0 0 0 0 Past Encounters Encounter ID Performer Location Encounter Start Date Encounter Closed Date Diagnosis/Indication Diagnosis SNOMED-CT Code Diagnosis ICD10 Code Diagnosis IMO Codes Diagnosis Note [id number] RUPERT MEJIA [facility] [address] [facility] [place] [address] 09/01/2021 19:19:38 09/07/2021 09:33:49 Submammary intertrigo 853688055 L30.4 [id number] RUPERT Paul [facility] [address] [place] [address] 03/15/2022 09:45:04 03/18/2022 20:48:29 Diarrhea 46512395 R19.7 Viral gastroenteritis 11 [id number] A08.4 Health Concerns Section Related Observation LastModified by Organization Detai ls LastModified Time None Recorded Concern Status LastModified by Organization Details LastModified Time None Recorded Advance Directives Directive None Recorded Payers Insurance Date Sequence Insurance Name Policy Number Policy Pearl Covered Member ID Pearl Member ID Guarantor Name 09/01/2021 1 *SELF PAY* Cici Mcginnis [id number] Cici Mcginnis 03/15/2022 1 MEDICARE B-IN: [employer] Cici Mcginnis [id number] Cici Mcginnis Notes Date Note Type Note Provider Name and Address Organization Details Recorded Time 09/01/2021 text/html 66 y/o F with hx of HLD, Anxiety, Depression, Hypogammaglobuline grisel, Restless leg syndrome, and peripheral neuropathy, new to and new to provider, is seeking further evaluation for a rash underneath her right breast that she noticed yesterday. The patient states that the rash is not itchy or painful and there was no numbness and tingling prior to the rash occurring. Patient denies any other associated symptoms. Patient denies any fevers, chills, nausea, vomiting, diarrhea, chest pain, or abdominal pain. RUPERT MEJIA [address] [place], [address], [place] [facility] 09/01/2021 20:16:46 03/15/2022 text/html 66 YO F new to provider but known to I have been in this home prior to see familyPatient is c/o of 3 days of loose stools, can be watery at timesShe has not stooled yet today and she may be getting a bit betterShashley has hx of IBS and has had bouts of this in the past She does vice frustration about having no GI follow up until e reports she has not seen her GI specialist in some time and he has changed practices and this is likely why she must wait a bitShe reports she called her primary and he did order some blood work to be done on her, she will be going to the lab to get this doneJennifer also requires supplies for a stool sampleShe reports she has been eating a BRAT diet and she has been hydratingShe denies any fever/chills, abd pain, cp, weakness, lethargy, blood in stool, nausea, or vomiting. RUPERT Galeano [address], [place], [address], [place] [facility] 03/15/2022 11:54:06 OBGyn Episode No OBEpisode recorded.
--- OUTSIDE RECORDS SUMMARY | 2025-10-04 19:42 | XMS_ITS | Encounter Summary ---
Author Organization [facility] Address [address] [place] [id number] Phone Care Team Providers Care Insurance Appraiser Name Role Phone Jaclyn Shady Rice DO Primary Care Provider [phone]- [phone] Encounter Details Date Type Department Care Team (Latest Contact Info) Description 09/28/2022 Transcribe Orders [facility] [place] [address] [address] Sri Bhakta NP [address] [place] [address] Fecal urgency (Primary Dx); Change in bowel habits; Lower abdominal pain Social History Tobacco Use Types Packs/Day Years Used Date Smoking Tobacco: Never Assessed Comments Unknown Sex and Gender Information Value Date Recorded Sex Assigned at Not on file Legal Sex Female 8:48 AM EDT Gender Identity Not on file Sexual Orientation Not on file documented as of this encounter Plan of Treatment Upcoming Encounters Date Type Department Care Team (Late st Contact Info) Description 02/03/2026 10:00 AM EDT Office Visit [facility] [address] [place] [address] Dennise Esquivel, TREATMENT SPECIALIST [address] [place] [address] documented as of this encounter Results * C-Reactive Protein (09/28/2022 12:01 PM EST) C REACTIVE PROTEIN <3.0 0.0 - 4.0 mg/L [facility] Blood 09/28/2022 12:0 1 PM EST 09/28/2022 12:05 PM EST Sri Bhakta NP LAB BLOOD BKR ORDERABLES Final Result Performing Organization Address City/[facility]/ZIP Co de Phone Number [address] [address] * (ABNORMAL) Comprehensive metabolic panel (09/28/2022 12:01 PM EST) SODIUM 138 133 - 146 mmol/L [facility] POTASSIUM 4.6 3.3 - 5.1 mmol/L [facility] CHLORIDE 101 96 - 108 mmol/L [facility] CO2 25 21 - 35 mmol/L [facility] BUN 21(H) 6 - 19 mg/dL [facility] CREATININE 0.90 0.5 - 1.5 mg/dL [facility] GLUCOSE 128(H) 70 - 99 mg/dL [facility] ALBUMIN 4.3 3.9 - 4.8 g/dL [facility] TOTAL PROTEIN 7.6 6.5 - 8.0 g/dL [facility] CALCIUM 10.1 8.4 - 10.3 mg/dL [facility] ALKALINE PHOSPHATASE 85 39 - 117 U/L [facility] TOTAL BILIRUBIN 0.2 0.0 - 1.2 mg/dL [facility] AST 29 0 - 37 U/L [facility] ALT 13 0 - 40 U/L [facility] GLOBULIN 3.3 1 - 4.8 g/dL [facility] EGFR 70 >59 mL/min/1.7 3m2 [facility] Comment:Estimated glomerular filtration rate calculated using the CKD-EPI refit equation. ANION GAP 17 10 - 20 mmol/L [facility] Blood 09/28/2022 12:0 1 PM EST 09/28/2022 12:05 PM EST Sri Bhakta NP LAB BLOOD BKR ORDERABLES Final Result Performing Organization Address City/[facility]/ZIP Co de Phone Number [address] [address] * (ABNORMAL) CBC (09/28/2022 12:01 PM EST) WBC 7.56 4.00 - 11.00 K/uL [facility] RBC 4.55 3.72 - 5.30 M/uL [facility] HGB 11.5 11.4 - 15.9 g/dL [facility] HCT 36.4 34.2 - 46.8 % [facility] PLT 501(H) 140 - 430 K/uL [facility] MCV 80.0 78.0 - 97.0 fL [facility] MCH 25.3 25.0 - 33.0 pg [facility] MCHC 31.6(L) 32.0 - 36.0 g/dL [facility] RDW 16.0 11.0 - 16.0 % [facility] MPV 10.3 8.4 - 12.8 fl [facility] Blood 09/28/2022 12:0 1 PM EST 09/28/2022 12:05 PM EST Sri Bhakta HEAD WRESTLING COACH LAB BLOOD BKR ORDERABLES Final Result [facility] [address] [place] [address] documented in this encounter Visit Diagnoses Diagnosis Fecal urgency- Primary Change in bowel habits Other symptoms involving digestive system Lower abdominal pain Abdominal pain, other specified site documented in this encounter Care Teams Insurance Appraiser Relationship Specialty Start Date End Date Shady Anaya DO [address] [place] [id number] PCP - General Internal Medicine 03/28/22 documented as of this encounter Additional Source Comments The information contained in this document represents components of the legal health record. It is not the complete legal health record.[facility]
--- OUTSIDE RECORDS SUMMARY | 2025-10-04 19:42 | XMS_ITS | Clinical Summary ---
[facility] Organization [facility] Address [address] [place] [address] Care Team Providers Care Feed Weigher Name Role Phone Unavailable Primary Care Provider [...] DM II Colon cancer Aunt 2 pat; [place] Cataracts Father Diabetes Father pancreatits Glaucoma Father [...] Orientation Not on file Plan of Treatment Health Maintenance Due Date Last Done Comments Breast Cancer Screening 1955 DTaP,Tdap,and Td Vaccines (1 - Tdap) 1974 Pneumococcal Vaccine: 50+ Years (1 of 1 - PCV) 2005 Zoster Vaccines (1 of 2) 2005 Depression Screening 10/21/2024 COVID-19 Vaccine (1 - 2024-2 6 season) 2025 Influenza Vaccine (#1) 2025 9, [...]
--- OUTSIDE RECORDS SUMMARY | 2025-10-04 19:42 | XMS_ITS | Clinical Summary ---
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 Name Role Phone Shady Anaya DO Primary Care Provider [phone]- [phone] Social History Tobacco Use Types Packs/Day Years [...] Orientation Not on file Plan of Treatment Upcoming Encounters Date Type Department Care Team (Late st Contact Info) Description 02/03/2026 10:00 AM EDT Office Visit [facility] [address] [place] [id number] Dennise Esquivel CNP [address] [place] [address] Health Maintenance Due Date Last Done Comments Adult Td,Tdap Booster 1955 LIPID PANEL 1955 DEPRESSION SCREENING 1967 SMOKING Hx and SMOKELESS TOB ACCO SCREENING 1968 HEPATITIS C SCREENING 1973 MAMMOGRAM 1995 COLOGUARD 2000 COLONOSCOPY 2000 FOBT 2000 SIGMOIDOSCOPY 2000 VIRTUAL COLONOSCOPY 2000 PNEUMOCOCCAL VACCINES (50+ y ears) (1 of 1 - PCV) 2005 ZOSTER VACCINES (1 of 2) 2005 OSTEOPOROSIS SCREENING INITI AL (ONE-TIME) 2020 COLORECTAL CANCER SCREENING 04/02/2023 FIT TEST 04/02/2023 04/02/2022 INFLUENZA VACCINE (#1) 2025 COVID-19 VACCINE (1 - 2024-2 6 season) 2025 RSV VACCINE (1 - 1-dose 75+ series) 2030 HEPATITIS A VACCINES Aged Out No long er eligible based on patient's age to complete this topic HIB VACCINES Aged Out No longer eligi ble based on patient's age to complete this topic MENINGOCOCCAL VACCINES (ACWY) Aged Out No longer eligible based on patient's age to complete this topic MENINGOCOCCAL VACCINES (B) Aged Out N o longer eligible based on patient's age to complete this topic Medical Devices Not on file Procedures Procedure Name Priority Date/Time Associated Diagnosis Comments HC BLOOD OCCULT FECAL HGB DETER IA QUAL FECES 1-3 Routine 04/02/2022 5:42 PM EDT Gastroesophageal reflux disease, unspecified whether esophagitis present Abdominal pain, epigastric Nausea from Last 3 Months or Most Recently Relevant to Health Maintenance Results * Fecal immunochemical test x1 (FIT) (04/02/2022 5:42 PM EDT) Immuno Fecal Occult Negative Negative [facility] Stool (Stool) 04/02/2022 5:4 2 PM EDT 04/02/2022 5:45 PM EDT Sri Bhakta NP LAB BODY FLUIDS AND STOOL ORDERABLES Final Result [facility] [address], [place] [id number] from Last 3 Months or Most Recently Relevant to Health Maintenance Insurance MEDICARE PART A & B [employer] MEDICARE SUPPLEMENT MEDICARE PART A & B [employer] MEDICARE SUPPLEMENT MEDICARE PART A & B [facility] MEDICARE SUPPLEMENT MEDICARE PART A & B [facility] MEDICARE SUPPLEMENT MEDICARE PART A & B [facility] MEDICARE SUPPLEMENT MEDICARE PART A & B [facility] MEDICARE SUPPLEMENT MEDICARE PART A & B [facility] MEDICARE SUPPLEMENT MEDICARE PART A & B [employer] MEDICARE SUPPLEMENT MEDICARE PART A & B [employer] EXTENSION MEDICARE SUPPLEMENT Care Teams Platen Drier Operator Relationship Specialty Start Date End Date Shady Anaya DO [address] [place] [id number] PCP - General Internal Medicine 03/28/22 Additional Source Comments The information contained in this document represents components of the legal health record. It is not the complete legal health record.[facility]
== END 2025-10-04 14:30 | disposition home or self-care (01) ==
LOC: HO.HOP 13:32
PROVIDERS: PCP Internal Medicine; Visit Provider Psychiatry & Neurology Psychiatry
DX: F33.41 Major depressive disorder, recurrent, in partial remission (principal); F41.1 Generalized anxiety disorder
CPT/HCPCS: 90833; 99213

== ENCOUNTER → 2025-10-04 13:32 | Outpatient (BNVA) | payer MEDICARE, OTHER, SELFPAY | PROVIDERS: PCP Internal Medicine; Visit Provider Psychiatry & Neurology Psychiatry | DX: F33.41 Major depressive disorder, recurrent, in partial remission (principal); F41.1 Generalized anxiety disorder | CPT/HCPCS: 99212 ==